=== PATIENT | female | born 1935 | race Caucasian/White ===

== ENCOUNTER 2024-12-31 02:51 | Emergency (ER) | payer OTHER ==
[~2024-12-31] VITALS: Ht 162.6 cm; Wt 68.0 kg
--- NOTE | 2024-12-31 04:14 | ED.PDOC ---
History of Present Illness HPI Comments 89 y/o F presents with c/c of abdominal pain, with associated bloating sensation and nausea. Patient endorses 2x day history of symptoms following unprovoked and atraumatic onset. No endorsement of any further acute symptoms. Chief Complaint: Abdominal Pain Time Seen by MD: 03:30 Reviewed Notes: Nurses Notes, Medications, Allergies Allergies: Coded Allergies: NO KNOWN ALLERGIES (Unverified , 12/31/24) Information Source: Patient Mode of Arrival: EMS Severity: Moderate All Other Systems: Reviewed and Negative (As per HPI) Physical Exam General Appearance: Moderate Distress, Normal, Other (elderly appearing) HEENT: Normal ENT Inspection, Pharynx Normal, TMs Normal Neck: Full Range of Motion, Non-Tender, Normal, Normal Inspection Respiratory: Chest Non-Tender, Lungs Clear, No Accessory Muscle Use, No Respiratory Distress, Normal Breath Sounds Cardiovascular: No Edema, No JVD, No Murmur, No Gallop, Normal Peripheral Pulses, Regular Rate/Rhythm Breast Exam: Deferred Gastrointestinal: LLQ (tenderness ), No Organomegaly, No Pulsatile Mass, Normal Bowel Sounds, RLQ (tenderness ), Soft, Tenderness (bilateral lower quadrants ) Genitalia: Deferred Pelvic: Deferred Rectal: Deferred Extremities: No calf tenderness, Normal capillary refill, Normal inspection, Normal range of motion, Non-tender, No pedal edema Musculoskeletal : Apperance: Normal Neurologic: Alert, director of gift 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 Was a procedure done?: No Differential Dx Considerations may include: gastritis, gastroenteritis, GERD, PUD, viral syndrome, among others X-Ray, Labs, Meds, VS Vital Signs Date Time Temp Pulse Resp B/P (MAP) Pulse Ox O2 Delivery O2 Flow Rate FiO2 12/31/24 06:21 83 18 190/76 12/31/24 05:12 98.3 75 18 169/63 (98) 96 98.3 12/31/24 03:00 73 12/31/24 02:58 98.9 88 14 135/88 100 98.9 Lab Test 12/31/24 03:44 Range/Units White Blood Count 10.0 4.4-10.8 10^3/uL Red Blood Count 4.86 4.0-5.20 10^6/uL Hemoglobin 15.2 12.2-16.2 g/dL Hematocrit 44.4 36.0-46.0 % Mean Corpuscular Volume 91.2 80.0-100.0 fL Mean Corpuscular Hemoglobin 31.2 28.0-32.0 pg Mean Corpuscular Hemoglobin Concent 34.2 32.0-36.0 g/dL Red Cell Distribution Width 13.5 11.8-14.3 % Platelet Count 345 140-450 10^3/uL Mean Platelet Volume 8.8 6.9-10.8 fL Neutrophils (%) (Auto) 71.8 37.0-80.0 % Lymphocytes (%) (Auto) 19.1 10.0-50.0 % Monocytes (%) (Auto) 7.6 0.0-12.0 % Eosinophils (%) (Auto) 1.1 0.0-7.0 % Basophils (%) (Auto) 0.4 0.0-2.0 % Neutrophils # (Auto) 7.2 1.6-8.6 10 ^3/uL Lymphocytes # (Auto) 1.9 0.4-5.4 10 ^3/uL Monocytes # (Auto) 0.8 0-1.3 10 ^3/uL Eosinophils # (Auto) 0.1 0-0.8 10 ^3/uL Basophils # (Auto) 0 0-0.2 10 ^3/uL Nucleated Red Blood Cells 0.1 % Sodium Level 140 136-145 mmol/L Potassium Level 3.9 3.5-5.1 mmol/L Chloride Level 108 H 98-107 mmol/L Carbon Dioxide Level 20 20-31 mmol/L Anion Gap 12 5-15 Blood Urea Nitrogen 9 9-23 mg/dL Creatinine 0.90 0.550-1.02 mg/dL Glomerular Filtration Rate Calc 61 >90 mL/min BUN/Creatinine Ratio 10.0 10.0-20.0 Serum Glucose 118 H 74-106 mg/dL Calcium Level 9.6 8.7-10.4 mg/dL Total Bilirubin 0.5 0.2-1.0 mg/dL Aspartate Amino Transferase (AST) 26 13-40 U/L Alanine Aminotransferase (ALT) 14 7-40 U/L Alkaline Phosphatase 93 46-116 U/L Total Protein 7.0 5.7-8.2 g/dL Albumin 4.2 3.2-4.8 g/dL Lipase 86 H 12-53 U/L Current Medications Medications (Trade) Dose Ordered Sig/Jennifer Route Start Time Stop Time Status Last Admin Sodium Chloride 1,000 ml @ 1,000 mls/hr Q1H ONCE IVB 12/31/24 03:30 12/31/24 04:29 DC 12/31/24 06:21 Morphine Sulfate 4 mg ONCE ONCE IV 12/31/24 05:00 12/31/24 05:01 DC 12/31/24 06:21 Ondansetron HCl (Zofran) 4 mg ONCE ONCE IV 12/31/24 05:00 12/31/24 05:01 DC 12/31/24 06:22 Patient alert. Came in because abdominal discomfort. Vitals stable. Answering questions. Lipase elevated. Was given morphine. Was given Zofran. Establish intravenous access. Was given fluids. Blood pressure elevated. Was given labetalol. Explained to the patient. Time of 1ST Reevaluation: 04:00 Reevaluation 1ST: Unchanged Patient Education/Counseling: Need For Follow Up Family Education/Counseling: No Family Present SEPSIS Sepsis Screen Date sepsis recognized/suspect: Dec 31, 2024 Time Sepsis recognized/suspect: 301 Recent Procedure: No On Antibiotic Therapy: No Respiratory Rate >20: No Heart Rate >90: No Temp<36 C (96.8 F) or >38.3 C: No SBP <90 or MAP <65 mmHG: No New Acute Mental Status Change: No Is the patient on CPAP, BIPAP,: No Physician Orders Urinalysis (12/31/24 03:29) Ct Ab Pel With Iv Con Only (12/31/24 03:29) Electrocardigram (12/31/24 03:35) Vital Signs Date Time Temp Pulse Resp B/P (MAP) Pulse Ox O2 Delivery O2 Flow Rate FiO2 12/31/24 06:21 83 18 190/76 12/31/24 05:12 98.3 75 18 169/63 (98) 96 98.3 12/31/24 03:00 73 12/31/24 02:58 98.9 88 14 135/88 100 98.9 Laboratory Tests Test 12/31/24 03:44 White Blood Count 10.0 10^3/uL (4.4-10.8) Medications Medications Dose Ordered Sig/Jennifer Route Start Time Stop Time Status Last Admin Dose Admin Morphine Sulfate 4 mg ONCE ONCE IV 12/31/24 05:00 12/31/24 05:01 DC 12/31/24 06:21 Ondansetron HCl 4 mg ONCE ONCE IV 12/31/24 05:00 12/31/24 05:01 DC 12/31/24 06:22 Sodium Chloride 1,000 ml @ 1,000 mls/hr Q1H ONCE IVB 12/31/24 03:30 12/31/24 04:29 DC 12/31/24 06:21 Departure 1 Departure Time of Disposition: 07:55 Impression: Primary Impression: Acute pancreatitis Qualified Codes: K85.90 - Acute pancreatitis without necrosis or infection, unspecified Additional Impression: Hypertensive urgency Disposition: ADMITTED INPATIENT Admit to: Med Surg Condition: Guarded e-Prescriptions Metronidazole (Flagyl) 500 Mg Tab 1 TAB PO BID, #14 TAB Prov: RANDI HURT MD 12/31/24 Levofloxacin Hemihydrate (LEVOFLOXACIN) 500 Mg Tab 500 MG PO DAILY for 10 Days, #10 MG Prov: RANDI HURT MD 12/31/24 Critical Care Note Critical Care Time?: No Stability Stability form required: No Heart Score Heart Score: Heart Score Response (Comments) Value History N/A 0 EKG N/A 0 Age N/A 0 Risk Factors N/A 0 Troponin N/A 0 Total 0 I personally scribed for JAUN COHN MD ([email or web address]) on 12/31/24 at 04:14. Electronically submitted by Cesar John ([email or web address]). I personally scribed for JAUN COHN MD ([email or web address]) on 12/31/24 at 04:15. Electronically submitted by Cesar John [email or web address]). JAUN COHN MD Dec 31, 2024 04:14 RANDI HURT MD Dec 31, 2024 07:56
[2024-12-31 04:20] LABS: Hematocrit 44.4 % (36.0-46.0); Hemoglobin 15.2 g/dL (12.2-16.2); Mean Corpuscular Hemoglobin 31.2 pg (28.0-32.0); Mean Corpuscular Volume 91.2 fL (80.0-100.0); Nucleated Red Blood Cells % 0.1 %
[2024-12-31 04:25] LABS: Alanine Aminotransferase 14 U/L (7-40); Albumin 4.2 g/dL (3.2-4.8); Alkaline Phosphatase 93 U/L (46-116); Anion Gap 12 (5-15); BUN/Creatinine Ratio 10.0 (10.0-20.0); Bilirubin, Total 0.5 mg/dL (0.2-1.0); Blood Urea Nitrogen 9 mg/dL (9-23); Calcium 9.6 mg/dL (8.7-10.4); Carbon Dioxide 20 mmol/L (20-31); Potassium 3.9 mmol/L (3.5-5.1); Sodium 140 mmol/L (136-145); Total Protein 7.0 g/dL (5.7-8.2)
[2024-12-31 04:38] LABS: Chloride 108 mmol/L (98-107); Glucose 118 mg/dL (74-106); Lipase 86 U/L (12-53)
[2024-12-31 05:12] VITALS: TEMP 98.3
[2024-12-31] MEDS: MORPHINE SULFATE 4 MG/ML SYR/VIAL IV ONE (06:21)
[2024-12-31] MEDS: SODIUM CHLORIDE 0.9% 1,000 ML IVB ONE (06:21)
[2024-12-31] MEDS: IOHEXOL 300 MG/ML 100ML BOTTLE IJ ONE (06:22)
[2024-12-31] MEDS: ONDANSETRON HCL 4 MG/2 ML VIAL IV ONE (06:22)
--- NOTE | 2024-12-31 06:35 | DVH ---
Exam: CT CT AB PEL WITH IV CON ONLY History: LLQ pain Comparison Study: None Contrast: Type of contrast: Omnipaque 300 Contrast injected: 100 mL Contrast wasted: 0 TECHNIQUE: CT of the abdomen pelvis was performed with intravenous contrast. Coronal and sagittal re formatted images are submitted. Radiation Dose Information: CT Dose: CTDI volume is 12.44 mGy. Dose-length product is 587.42 mGy*cm FINDINGS: Lung Bases: No acute or significant lung base finding. Normal heart size. No pleural or pericardial effusion. Liver: The liver measures 16.1 cm in length. Diffusely hypoattenuating liver parenchyma consistent wi th hepatic steatosis. No focal lesions. Normal hepatic vascular enhancement. Gallbladder and Biliary Tree: The gallbladder is unremarkable. No biliary ductal dilatation. Spleen: Multiple calcifications in the spleen. No evidence of splenomegaly. Pancreas: The pancreas is normal in appearance without focal lesions or abnormal enhancement. Adrenal Glands: Unremarkable Kidneys: Kidneys demonstrate symmetric enhancement. Nonobstructive right nephrolithiasis measuring 3 mm. No left renal calculi or ureteral calculi. Left cortical renal cyst. Bladder: Unremarkable Bowel: Small hiatal hernia. No evidence of bowel obstruction. Liquid stool throughout the colon. Mil d mucosal thickening throughout the colon. Extensive sigmoid diverticulosis without acute diverticuli tis. No evidence of acute appendicitis. Peritoneum: No pneumoperitoneum. No ascites. Lymphadenopathy: No mesenteric, retroperitoneal or periportal lymphadenopathy. Abdominal Wall and Mesentery: Unremarkable. Vasculature: The visualized abdominal aorta is normal in size and caliber. There are atherosclerotic calcifications in the aorta. Abdominal and pelvic vessels demonstrate normal enhancement. Pelvic Organs: Unremarkable Musculoskeletal: No aggressive focal bony lesions, acute fractures or dislocation. Multilevel lumbar spondylosis. Soft tissues: Unremarkable. IMPRESSION: 1. Findings suggestive of infectious or inflammatory pancolitis. 2. Extensive sigmoid diverticulosis without acute diverticulitis. 3. Nonobstructive right nephrolithiasis measuring 3 mm. 4. Hepatic steatosis.
[2024-12-31] MEDS: LABETALOL HCL 20 MG/4 ML VL IV ONE (08:00)
[2024-12-31] MEDS ORDERED: METR-344 PO (08:09)
[2024-12-31] MEDS ORDERED: LEVO500T91 PO (08:09)
--- NOTE | 2024-12-31 08:14 | DVHDS2 ---
New Physician D'charge PN Admitting Diagnosis Admitting Diagnosis colitis Discharge Diagnosis colitis Operations or Procedures none Reason(s) For Hospitalization Surgery Hospital Course 89 F who comes to ER for abd pain and nausea. When she arrived her vitals signs were wnl, she was afebrile and no tachycardia. Her CT abdomen revealed mild mucosal thickening throughout the colon suggestive of colitis. Her lab data showed WBC 10k and chemistry panel nml with preserved renal function. Otherwise she is comfortable and denies any other complaints. She will be discharged home with levaquin and flagyl PO x 10 days for colitis as noted on CT abdomen. [facility] to arrange for all outpt follow up including GI. Discussed with ER provider and all parties in agreement with plan. Treatment Plan Discharge Condition of Discharge Good Disposition Home Discharge Instructions Diet: Cardiac 2g Na,low cholest Activity: No Restrictions, As Tolerated Medications: see med sheet Follow Up Care Follow Up/Referral: pcp gi Discharge Statement: "Patient was advised to return to the ER or call 911 if any headaches, dizziness, shortness of breath, chest pain, abdominal pain, bleeding, fevers, or worsening of medical condition. Patient was counseled about treatment plan, medications, possible side effects, patientverbalized understanding. All questions were answered to the best of my ability. This discharge took greater then 30 minutes in planning, reviewing documentation, counseling the patient, and discussing with other team members." KAREN RALPH MD Dec 31, 2024 08:14
[2024-12-31 09:15] VITALS: BP 125/56; PULSE 76; RESP 18; O2SAT 0
--- NOTE | 2024-12-31 09:48 | ECG ---
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
== END 2024-12-31 09:21 | disposition home or self-care (01) ==
LOC: EDBD 02:51 → ER 02:51
DX: K85.90 Acute pancreatitis without necrosis or infection, unspecified (principal); I16.0 Hypertensive urgency
CPT/HCPCS: 36415; 74177; 80053; 83690; 85025; 93005; 96361; 96374; 96375; 99285; J2270; J2405; J7030; Q9967

== ENCOUNTER 2025-01-02 14:39 | Emergency (ER) | payer OTHER ==
[~2025-01-02] VITALS: Ht 157.5 cm; Wt 70.0 kg
[~2025-01-02 14:39] MED LIST: LEVO500T91 PO; METR-344 PO
--- NOTE | 2025-01-02 15:11 | ECG ---
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
--- NOTE | 2025-01-02 15:14 | ED.PDOC ---
GI ASSESSMENT HPI Comments 89-year-old female who comes in with chief complaint of left lower quadrant pain. The symptoms started approximately four days ago. The patient states that the pain is a 10/10 and associated with some nausea but no vomiting. The patient now has also been complaining of constipation. She states that she was seen here earlier this week and was then discharged home. She denies any chest pain or shortness for breath. The patient was brought to the emergency department's by her family member. The patient also denies any dysuria or hematuria. The patient's seems to have increased pain when she ambulates. Chief Complaint: Abdominal Pain Time Seen by MD: 14:41 Reviewed Notes: Nurses Notes, Medications, Allergies (No allergies to medications) Allergies: Coded Allergies: NO KNOWN ALLERGIES (Unverified , 12/31/24) Home Meds Active Scripts Metronidazole (Flagyl) 500 Mg Tab, 1 TAB PO BID, #14 TAB Prov:RANDI HURT MD 12/31/24 Levofloxacin Hemihydrate (LEVOFLOXACIN) 500 Mg Tab, 500 MG PO DAILY for 10 Days, #10 MG Prov:RANDI HURT MD 12/31/24 Information Source: Patient Mode of Arrival: Ambulatory Timing: Days (Started four days ago) Duration: Since onset Prehospital treatment: None Quality: Sharp Vomitus: None Stool: Other (Constipation) Severity: Moderate Recent: None Recent Hx of: None Pain Location: LLQ Modifying Factors: Nothing Associated sign and symptoms: Constipation, Abdominal Pain Past Medical History PAST MEDICAL HISTORY: Cancer (Skin cancer), COPD, HTN Surgical History: Appendectomy, , Hysterectomy, Tonsillectomy Surgical History (Other): Cataract surgery EMBROIDERER HAND History: No Pertinent EMBROIDERER HAND History Family History Family History: No family hx of Cancer, No family hx of DM, No family hx of Heart roque Social History Smoker: Non-Smoker, Quit Greater Than 1 Year Alcohol: Denies ETOH Use Drugs: Denies Drug Use Lives In: Home Constitutional: denies: chills, diaphoresis, fatigue, fever, malaise, sweats, weakness, others EENTM: denies: blurred vision, double vision, ear bleeding, ear discharge, ear drainage, ear pain, ear ringing, eye pain, eye redness, hearing loss, mouth pain, mouth swelling, nasal discharge, nose bleeding, nose congestion, nose pain, photophobia, tearing, throat pain, throat swelling, voice changes, others Respiratory: denies: cough, hemoptysis, orthopnea, SOB at rest, shortness of breath, SOB with excertion, stridor, wheezing, others Cardiovascular: denies: chest pain, dizzy spells, diaphoresis, Dyspnea on exertion, edema, irregular heart beat, left arm pain, lightheadedness, palpitations, PND, syncope, others Gastrointestinal: reports: abdominal pain, nausea; denies: abdomen distended, blood streaked bowels, constipated, diarrhea, dysphagia, difficulty swallowing, hematemesis, melena, poor appetite, poor fluid intake, rectal bleeding, rectal pain, vomiting, others Genitourinary: denies: abnormal vagina bleeding, burning, dyspareunia, dysuria, flank pain, frequency, hematuria, incontinence, pain, , vagina discharge, urgency, others Neurological: denies: dizziness, fainting, headache, left sided numbness, left sided weakness, numbness, paresthesia, pre-existing deficit, right sided numbness, right sided weakness, seizure, speech problems, tingling, tremors, weakness, others Musculoskeletal: denies: back pain, gout, joint pain, joint swelling, muscle pain, muscle stiffness, neck pain, others Integumetry: denies: bruises, change in color, change in hair/nails, dryness, laceration, lesions, lumps, rash, wounds, others Allergic/Immunocompromised: denies: Difficulty Healing, Frequent Infections, Hives, Itching, others Hematologic/Lymphatic: denies: anemia, blood clots, easy bleeding, easy bruising, swollen glands, others Endocrine: denies: excessive hunger, excessive sweating, excessive thirst, excessive urination, flushing, intolerance to cold, intolerance to heat, unexplained weight gain, unexplained weight loss, others Psychiatric: denies: anxiety, bipolar disorder, depression, hopeless, panic disorder, schizophrenia, sleepless, suicidal, others Physical Exam General Appearance: Moderate Distress HEENT: Normal ENT Inspection, Pharynx Normal, TMs Normal Neck: Full Range of Motion, Non-Tender, Normal, Normal Inspection Respiratory: Chest Non-Tender, Lungs Clear, No Accessory Muscle Use, No Respiratory Distress, Normal Breath Sounds Cardiovascular: No Edema, No JVD, No Murmur, No Gallop, Normal Peripheral Pulses, Regular Rate/Rhythm Breast Exam: Deferred Gastrointestinal: LLQ, No Organomegaly, No Pulsatile Mass, Normal Bowel Sounds, Soft, Tenderness Genitalia: Deferred Pelvic: Deferred Rectal: Deferred Extremities: No calf tenderness, Normal capillary refill, Normal inspection, Normal range of motion, Non-tender, No pedal edema Musculoskeletal : Apperance: Normal Neurologic: Alert, 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 Was a procedure done?: No GI differential Dx Differential Diagnosis: Diverticular disease, Gastritis/PUD, Gastroenteritis, Pancreatitis, UTI X-Ray, Labs, Meds, VS Vital Signs Date Time Temp Pulse Resp B/P (MAP) Pulse Ox O2 Delivery O2 Flow Rate FiO2 01/02/25 16:18 83 19 142/71 (94) 98 01/02/25 15:13 82 01/02/25 15:01 82 01/02/25 14:40 97.5 81 18 197/62 96 97.5 Lab Test 01/02/25 15:13 Range/Units White Blood Count 8.0 4.4-10.8 10^3/uL Red Blood Count 4.61 4.0-5.20 10^6/uL Hemoglobin 14.3 12.2-16.2 g/dL Hematocrit 41.7 36.0-46.0 % Mean Corpuscular Volume 90.5 80.0-100.0 fL Mean Corpuscular Hemoglobin 31.0 28.0-32.0 pg Mean Corpuscular Hemoglobin Concent 34.3 32.0-36.0 g/dL Red Cell Distribution Width 13.4 11.8-14.3 % Platelet Count 319 140-450 10^3/uL Mean Platelet Volume 8.6 6.9-10.8 fL Neutrophils (%) (Auto) 65.9 37.0-80.0 % Lymphocytes (%) (Auto) 23.5 10.0-50.0 % Monocytes (%) (Auto) 8.1 0.0-12.0 % Eosinophils (%) (Auto) 1.8 0.0-7.0 % Basophils (%) (Auto) 0.7 0.0-2.0 % Neutrophils # (Auto) 5.3 1.6-8.6 10 ^3/uL Lymphocytes # (Auto) 1.9 0.4-5.4 10 ^3/uL Monocytes # (Auto) 0.7 0-1.3 10 ^3/uL Eosinophils # (Auto) 0.1 0-0.8 10 ^3/uL Basophils # (Auto) 0.1 0-0.2 10 ^3/uL Nucleated Red Blood Cells 0.1 % Sodium Level 141 136-145 mmol/L Potassium Level 3.7 3.5-5.1 mmol/L Chloride Level 106 98-107 mmol/L Carbon Dioxide Level 24 20-31 mmol/L Anion Gap 11 5-15 Blood Urea Nitrogen 11 9-23 mg/dL Creatinine 1.11 H 0.550-1.02 mg/dL Glomerular Filtration Rate Calc 48 >90 mL/min BUN/Creatinine Ratio 9.9 L 10.0-20.0 Serum Glucose 101 74-106 mg/dL Calcium Level 9.4 8.7-10.4 mg/dL Total Bilirubin 0.5 0.2-1.0 mg/dL Aspartate Amino Transferase (AST) 33 13-40 U/L Alanine Aminotransferase (ALT) 15 7-40 U/L Alkaline Phosphatase 85 46-116 U/L Total Protein 7.1 5.7-8.2 g/dL Albumin 4.3 3.2-4.8 g/dL Lipase 41 12-53 U/L The patient was somewhat hypertensive when she came in. An IV Hep-Lock is being established The patient is given morphine for the pain The patient is also given Zofran for the nausea The CAT scan of the abdomen and pelvis shows: Impression: No acute noncontrast CT abnormality in the abdomen or pelvis. Punctate right renal calculus. Hysterectomy. Colonic diverticulosis. 3-vessel coronary artery calcifications. Small hiatal hernia. The patient is having persistent abdominal pain as well as the elevated blood pressure The chemistry panel is within normal limits. The CBC is within normal limits. The lipase is 41 and within normal limits. The patient is being admitted at this time Images Reviewed?: Images reviewed and evaluated by me Time of 1ST Reevaluation: 15:13 Reevaluation 1ST: Unchanged Patient Education/Counseling: Diagnosis, Treatment, Prognosis Family Education/Counseling: Diagnosis, Treatment, Prognosis SEPSIS Sepsis Screen Date sepsis recognized/suspect: Jan 02, 2025 Time Sepsis recognized/suspect: 1443 Recent Procedure: No On Antibiotic Therapy: No Respiratory Rate >20: No Heart Rate >90: No Temp<36 C (96.8 F) or >38.3 C: No SBP <90 or MAP <65 mmHG: No New Acute Mental Status Change: No Is the patient on CPAP, BIPAP,: No Physician Orders Urinalysis (01/02/25 15:03) Ct Ab Pel Wo Con-No Oral Or Iv (01/02/25 15:03) Heplock Iv (01/02/25 15:03) For[place] Tender (01/02/25 15:03) Blood Pressure (01/02/25 15:03) Pulse Oximetry (01/02/25 15:03) Vital Signs Date Time Temp Pulse Resp B/P (MAP) Pulse Ox O2 Delivery O2 Flow Rate FiO2 01/02/25 16:18 83 19 142/71 (94) 98 01/02/25 15:13 82 01/02/25 15:01 82 01/02/25 14:40 97.5 81 18 197/62 96 97.5 Laboratory Tests Test 01/02/25 15:13 White Blood Count 8.0 10^3/uL (4.4-10.8) Departure 1 Departure Time of Disposition: 17:14 Impression: Primary Impression: Intractable abdominal pain Disposition: 09 ADMITTED INPATIENT Admit to: Med Surg Condition: Fair Critical Care Note Critical Care Time?: No Stability Stability form required: Yes Unstable for transfer: ED Physician Assesment (Clinical assesment) Heart Score Heart Score: Heart Score Response (Comments) Value History N/A 0 EKG N/A 0 Age N/A 0 Risk Factors N/A 0 Troponin N/A 0 Total 0 CHATA HAIDER MD Jan 02, 2025 15:13
[2025-01-02 15:39] LABS: Hematocrit 41.7 % (36.0-46.0); Hemoglobin 14.3 g/dL (12.2-16.2); Mean Corpuscular Hemoglobin 31.0 pg (28.0-32.0); Mean Corpuscular Volume 90.5 fL (80.0-100.0); Nucleated Red Blood Cells % 0.1 %
--- NOTE | 2025-01-02 15:40 | DVH ---
CLINICAL HISTORY: pain TECHNIQUE: CT of the abdomen and pelvis was performed without IV contrast. This exam was performed ac cording to our departmental dose optimization program. Up-to-date CT equipment and radiation dose red uction techniques are utilized as appropriate. CTDI 11.5 DLP 614 COMPARISON: None FINDINGS: Abdomen/Pelvis: The adrenal glands, pancreas, and liver are grossly unremarkable. There is a moderate amount of slud ge in the gallbladder. Splenic calcifications are compatible with prior granulomatous disease. The 2 mm nonobstructing right renal calculus. Hypodense left renal lesion is incompletely characteriz ed due to lack of IV contrast. The bladder is not well distended therefore not well evaluated. The uterus is absent. The abdominal aorta is normal in course and caliber. There are moderate to advanced atherosclerotic c alcifications. There is no free intraperitoneal air or fluid. There is no enlarged abdominal pelvic lymph node. There is no bowel wall thickening or dilatation. There is colonic diverticulosis, moderate in the sig moid segment. Other: The imaged lower thorax demonstrates coronary artery calcifications and mild bilateral lower lung ate lectatic changes. There is a small hiatal hernia. No acute osseous abnormality is evident. Impression: No acute noncontrast CT abnormality in the abdomen or pelvis. Punctate right renal calculus. Hysterectomy. Colonic diverticulosis. 3-vessel coronary artery calcifications. Small hiatal hernia.
[2025-01-02 15:59] LABS: Alanine Aminotransferase 15 U/L (7-40); Albumin 4.3 g/dL (3.2-4.8); Alkaline Phosphatase 85 U/L (46-116); Anion Gap 11 (5-15); BUN/Creatinine Ratio 9.9 (10.0-20.0); Bilirubin, Total 0.5 mg/dL (0.2-1.0); Blood Urea Nitrogen 11 mg/dL (9-23); Calcium 9.4 mg/dL (8.7-10.4); Carbon Dioxide 24 mmol/L (20-31); Chloride 106 mmol/L (98-107); Glucose 101 mg/dL (74-106); Potassium 3.7 mmol/L (3.5-5.1); Sodium 141 mmol/L (136-145); Total Protein 7.1 g/dL (5.7-8.2)
[2025-01-02 16:12] LABS: Lipase 41 U/L (12-53)
[2025-01-02] MEDS: MORPHINE SULFATE 4 MG/ML SYR/VIAL IV ONE ×2 (17:45→23:46)
[2025-01-02] MEDS: ONDANSETRON HCL 4 MG/2 ML VIAL IV ONE (18:00)
[2025-01-02 19:28] LABS: Urine Protein, UAD Negative (Negative)
[2025-01-02 19:46] VITALS: PULSE 79; RESP 13; O2SAT 95
[2025-01-03] MEDS: SOD CHL 0.45% 1,000 ML IV ONE (01:57)
[2025-01-03] MEDS: CIPROFLOXACIN 400MG/200ML 200 ML IV ONE (01:57)
[2025-01-03] MEDS: LACTULOSE 20Gm/30ML SOLN PO ONE (01:58)
[2025-01-03 04:05] VITALS: BP 97/58; PULSE 92; RESP 12; TEMP 97.9; O2SAT 95
--- NOTE | 2025-01-03 07:50 | DVHDS2 ---
Physician Discharge Progress N Final Diagnosis: Nonobstructing 2 mm renal calculus Operations or Procedures: Operations or Procedures none Other Interventions Other Interventions lab results CT of the abdomen Commentary: Commentary 89 y.o. female was brought to the ER c/o abdominal pain associated with nausea and constipation for the past 3 days. Patient was here [address] at that time showed colitis and 3mm nonobstructing renal stone. Patient was given antibiotics and discharged to / with PMD. Today her CT did not show colitis and only showed 2 mm nonobstructing renal stone. UA also showed increased RBCs. Patient was given IVF, Cipro, Hydralazine for elevated blood pressure and pain medications. Her labs were normal, VS remained stable. Patient was discharged home to / with urology and PMD. Condition on Discharge: Stable Disposition: Home SNF Discharge Will this Physician continue t: No Discharge Instructions: Diet: Regular Activity: No Restrictions, As Tolerated Follow Up/Referral: Urologist and PMD appointmebts will be scheduled by [facility] case reviewer and coordinated with the patient Medications: Continue home medications Follow Up Care: Discharge Statement: "Patient was advised to return to the ER or call 911 if any headaches, dizziness, shortness of breath, chest pain, abdominal pain, bleeding, fevers, or worsening of medical condition. Patient was counseled about treatment plan, medications, possible side effects, patientverbalized understanding. All questions were answered to the best of my ability. This discharge took greater then 30 minutes in planning, reviewing documentation, counseling the patient, and discussing with other team members." MEHRAN GOODRICH MD Jan 03, 2025 07:50
== END 2025-01-03 04:55 | disposition home or self-care (01) ==
LOC: ER 14:43
DX: R10.32 Left lower quadrant pain (principal); I10 Essential (primary) hypertension; J44.9 Chronic obstructive pulmonary disease, unspecified; K59.00 Constipation, unspecified; Z85.828 Personal history of other malignant neoplasm of skin; Z87.442 Personal history of urinary calculi; Z90.49 Acquired absence of other specified parts of digestive tract; Z90.710 Acquired absence of both cervix and uterus; Z98.49 Cataract extraction status, unspecified eye
CPT/HCPCS: 36415; 74176; 80053; 81001; 83690; 85025; 93005; 96365; 96375; 96376; 99285; J2270; J2405; J7030